=== PATIENT | male | born 1990 | race Caucasian/White ===

== ENCOUNTER 2017-04-19 16:01 | Emergency (ER) | payer MEDICAID ==
--- NOTE | 2017-04-19 16:07 | ED Physician Documentation ---
PD HPI URI - Stated complaint Stated Complaint: CHEST PX WHEN COUGHING - Chief complaint Chief Complaint: Resp - History obtained from History obtained from: Patient - History of Present Illness Timing - onset: How many weeks ago (1) Timing duration: Weeks (he has had cough for 3 weeks, deep and harsh but nonproductive. Started having pain anterior right chest with cough a week ago. Not improving.) Timing details: Gradual onset Associated symptoms: Nasal congestion, Dry cough, Chest pain, Dyspnea (some wheezing at times). No: Fever, NVD, Bilateral edema Contributing factors: No: Sick contact, Travel, Immunocompromised, COPD / asthma (but has smoked a long time) Worsened by: Breathing, Other (cough) Similar symptoms before: Has not had sx before Recently seen: Not recently seen Review of Systems Constitutional: denies: Fever, Chills Nose: denies: Rhinorrhea / runny nose, Congestion Throat: denies: Sore throat Cardiac: reports: Chest pain / pressure. denies: Palpitations, Pedal edema, Calf pain Respiratory: reports: Cough, Wheezing GI: denies: Vomiting, Diarrhea Skin: denies: Rash, Lesions PD PAST MEDICAL HISTORY - Past Medical History Cardiovascular: None Respiratory: None Endocrine/Autoimmune: None GI: Other - Past Surgical History Past Surgical History: No General: Cholecystectomy - Present Medications Home Medications: Ambulatory Orders Medication Instructions Recorded Confirmed Albuterol Sulf [Ventolin Hfa 1 - 2 puffs INH Q4HR PRN #1 inhaler 04/19/17 Inhaler] Azithromycin [Zithromax] 250 mg PO DAILY #6 tablet 04/19/17 Dexamethasone [Decadron] 4 mg PO DAILY #5 tablet 04/19/17 guaiFENesin/CODEINE [Robitussin AC] 10 ml PO Q6H PRN #240 ml 04/19/17 - Allergies Allergies/Adverse Reactions: Allergies Allergy/AdvReac Type Severity Reaction Status Date / Time Penicillins Allergy Mild Itching Verified 04/19/17 16:06 morphine Allergy Rash Verified 04/19/17 16:06 - Social History Does the pt smoke?: Yes Smoking Status: Current every day smoker Does the pt drink ETOH?: Yes - Immunizations Immunizations are current?: Yes PD ED PE NORMAL - Vitals Vital signs reviewed: Yes - General General: Alert and oriented X 3, No acute distress, Well developed/nourished - HEENT HEENT: Ears normal, Pharynx benign - Neck Neck: Supple, no meningeal sign, No adenopathy - Cardiac Cardiac: RRR, No murmur - Respiratory Respiratory: No: Clear bilaterally (diffuse mild wheezing. right anterior chestwall tender at parasternal cartilage. No rash nor sores. ) - Abdomen Abdomen: Soft, Non tender - Derm Derm: Normal color, Warm and dry, No rash Results - Vitals Vitals: Vital Signs - 24 hr 04/19/17 04/19/17 16:04 16:50 Temperature 36.8 C 36.9 C Heart Rate 68 67 Respiratory 18 18 Rate Blood Pressure 136/75 H 122/70 O2 Saturation 100 100 Oxygen O2 Source Room air - Rads (name of study) chest xray Radiology: Prelim report reviewed, EMP read contemporaneously (no infiltrates) PD MEDICAL DECISION MAKING - ED course Complexity details: re-evaluated patient, considered differential, d/w patient Departure - Departure Disposition: 01 Home, Self Care Clinical Impression: Anterior chest wall pain Upper respiratory infection Qualifiers: URI type: unspecified URI Qualified Code(s): J06.9 - Acute upper respiratory infection, unspecified Condition: Stable Record reviewed to determine appropriate education?: Yes Instructions: ED Upper Resp Infec Abx Tx Follow-Up: [facility] [Provider Group] Prescriptions: Albuterol Sulf [Ventolin Hfa Inhaler] 1 - 2 puffs INH Q4HR PRN #1 inhaler PRN Reason: Shortness Of Air/Wheezing Azithromycin [Zithromax] 250 mg PO DAILY #6 tablet Dexamethasone [Decadron] 4 mg PO DAILY #5 tablet guaiFENesin/CODEINE [Robitussin AC] 10 ml PO Q6H PRN #240 ml PRN Reason: Cough Comments: Drink lots of fluids. Use some ibuprofen 2 or 3 times daily for pains. Decadron is a steroid anti-inflammatory daily for 5 more days to reduce bronchial inflammation and should help in the chest as well. Albuterol inhaler 2 puffs 4 times a day for the next 7-10 days to help reduce cough and wheezing and improved breathing. Add cough medicine as needed. This may be just irritated from prior chest cold along with smoking but the duration of it would be concerning for bacterial bronchitis and so we will treated with antibiotics azithromycin for 5 days as well. Recheck if not improving over the next week or so. Discharge Date/Time: 04/19/17 16:55
[2017-04-19] MEDS ORDERED: guaiFENesin/CODEINE 5 ML UDC PO STA (16:19)
[2017-04-19] MEDS ORDERED: DEXAMETHASONE 10 MG/ML VIAL PO STA (16:19)
--- NOTE | 2017-04-19 16:42 | XRAY Preliminary Report ---
Exam: XR CHEST 2 VIEW PA/LAT IMPRESSION: No focal consolidation. [facility] SITE ID: [id number]
[2017-04-19] MEDS ORDERED: guaiFENesin/CODEINE 5 ML UDC ONE (16:43)
[2017-04-19] MEDS ORDERED: DEXAMETHASONE 10 MG/ML VIAL ONE (16:43)
--- NOTE | 2017-04-19 16:44 | XRAY Report ---
EXAM: CHEST RADIOGRAPHY EXAM DATE: 04/19/2017 04:32 PM. CLINICAL HISTORY: Cough for 3 weeks; anterior chest pain. COMPARISON: None. TECHNIQUE: 2 views. FINDINGS: Lungs/Pleura: No focal opacities evident. No pleural effusion. No pneumothorax. Normal volumes. Mediastinum: Heart and mediastinal contours are unremarkable. Other: None. IMPRESSION: No focal consolidation. [facility] Referring Provider Line: [phone] SITE ID: [id number]
[2017-04-19 16:50] VITALS: BP 122/70
== END 2017-04-19 16:55 | disposition home or self-care (01) ==
LOC: ED 16:01
DX: J06.9 Acute upper respiratory infection, unspecified (principal); R07.89 Other chest pain; F17.200 Nicotine dependence, unspecified, uncomplicated
CPT/HCPCS: 71020; 99283; A9270

== ENCOUNTER 2017-06-16 17:19 | Emergency (ER) | payer MEDICAID ==
[2017-06-16 17:25] VITALS: BP 125/80
--- NOTE | 2017-06-16 17:49 | ED Physician Documentation ---
PD HPI HEENT - Stated complaint Stated Complaint: TOOTH PX LT SIDE - Chief complaint Chief Complaint: Heent - History obtained from History obtained from: Patient - History of Present Illness Timing - onset: How many days ago (3) Timing - duration: Days (3) Timing - details: Gradual onset Pain level max: 8 Pain level now: 6 Location: Tooth (L upper molar) Improves: Medication (motrin) Worsens: Temperatures, Other (chewing) Associated symptoms: No: Fever, Congestion, Rhinorrhea, Trismus, Unable to swallow, Swollen nodes, Facial swelling, Headache, Cough Similar symptoms before: Diagnosis (dental caries) - Additional information Additional information: Patient is a 27-year-old male who presents to the emergency department with dental pain for the past 3 days. He states that he had his tooth "drilled and filled". This was done at [place]. States since that time he has had continued pain. Has not followed up with his dentist. He is concerned that it may be getting infected. Is using Motrin at home for pain. No fevers. No facial swelling. Review of Systems Constitutional: denies: Fever, Chills GI: denies: Vomiting Skin: denies: Rash PD PAST MEDICAL HISTORY - Past Medical History Past Medical History: No Cardiovascular: None Respiratory: None Endocrine/Autoimmune: None GI: Other - Past Surgical History Past Surgical History: No General: Cholecystectomy - Present Medications Home Medications: Ambulatory Orders Medication Instructions Recorded Confirmed Clindamycin HCl [Clindamycin 300MG 300 mg PO Q6H #28 capsule 06/16/17 CAP] Meloxicam [Mobic] 15 mg PO DAILY PRN #20 tablet 06/16/17 - Allergies Allergies/Adverse Reactions: Allergies Allergy/AdvReac Type Severity Reaction Status Date / Time Penicillins Allergy Mild Itching Verified 06/16/17 17:25 codeine Allergy Unknown Verified 06/16/17 17:25 morphine Allergy Rash Verified 06/16/17 17:25 - Social History Does the pt smoke?: Yes Smoking Status: Current every day smoker Does the pt drink ETOH?: No Does the pt have substance abuse?: Yes Substance Use and Type: Marijuana - Immunizations Immunizations are current?: No Immunizations: TDAP >10years/unknown - POLST Patient has POLST: No PD ED PE NORMAL - Vitals Vital signs reviewed: Yes - General General: Alert and oriented X 3, No acute distress, Well developed/nourished - HEENT HEENT: PERRL - Neck Neck: Supple, no meningeal sign, No adenopathy - Cardiac Cardiac: RRR, No murmur - Respiratory Respiratory: No respiratory distress, Clear bilaterally - Derm Derm: Warm and dry - Neuro Neuro: Alert and oriented X 3 - Psych Psych: Normal mood, Normal affect PD ED PE EXPANDED - HEENT HEENT Visual: 1 - tenderness (no ginigival swelling, abscess or drainage.) Results - Vitals Vitals: Vital Signs - 24 hr 06/16/17 17:21 Temperature 36.7 C Heart Rate 78 Respiratory 20 Rate Blood Pressure 125/80 O2 Saturation 100 Oxygen O2 Source Room air PD MEDICAL DECISION MAKING - ED course Complexity details: reviewed old records, considered differential, d/w patient ED course: Patient is a 27-year-old male who presents to the emergency department with continued dental pain. Recommend that he follow-up closely with his dentist as he needs to be seen since the pain was following a procedure that they performed. Recommend that he go to their office on Monday. Will place him on antibiotics and Mobic for the time being. No abscess. No facial cellulitis. Patient is penicillin allergic, therefore will utilize clindamycin. Patient counseled regarding signs and symptoms for which I believe and urgent re- evaluation would be necessary. Patient with good understanding of and agreement to plan and is comfortable going home at this time This document was made in part using voice recognition software. While efforts are made to proofread this document, sound alike and grammatical errors may occur. Departure - Departure Disposition: 01 Home, Self Care Clinical Impression: Dental caries Condition: Good Instructions: ED Tooth Pain Follow-Up: your,doctor on monday. [Other] Prescriptions: Clindamycin HCl [Clindamycin 300MG CAP] 300 mg PO Q6H #28 capsule Meloxicam [Mobic] 15 mg PO DAILY PRN #20 tablet PRN Reason: pain Comments: Take all antibiotics until gone. Return if you worsen. Discharge Date/Time: 06/16/17 17:53
== END 2017-06-16 17:53 | disposition home or self-care (01) ==
LOC: ED 17:19
DX: K02.9 Dental caries, unspecified (principal); F17.200 Nicotine dependence, unspecified, uncomplicated
CPT/HCPCS: 99283

== ENCOUNTER 2017-07-12 11:44 | Emergency (ER) | payer OTHER, MEDICAID ==
[2017-07-12] MEDS ORDERED: CYCLOBENZAPRINE 10 MG TABLET PO STA (12:35)
[2017-07-12] MEDS ORDERED: KETOROLAC 60 MG/2 ML VIAL IM STA (12:35)
[2017-07-12] MEDS ORDERED: LIDOCAINE PATCH 5% TOP STA (12:35)
[2017-07-12 13:16] VITALS: BP 128/61
--- NOTE | 2017-07-12 13:22 | ED Physician Documentation ---
History of Present Illness - Stated complaint Stated Complaint: BACK INJ - Chief complaint Chief Complaint: Back Pain - Additonal information Additional information: hx from pt injured back carrying a couch down stairs at work pain is to low thoracic right side region no abd pain no numbness or weakness no incont no fever with this back pain - he did have a fever after denbtal work several weeks ago and again with URI flu sx last week no IV meds drugs Review of Systems Constitutional: denies: Fever (not with the back pain) Cardiac: denies: Chest pain / pressure GI: denies: Abdominal Pain : denies: Incontinent, Hematuria Musculoskeletal: reports: Back pain Neurologic: denies: Focal weakness, Numbness Endocrine: denies: Easy bruising / bleeding Immunocompromised: denies: Immunocompromised PD PAST MEDICAL HISTORY - Past Medical History Past Medical History: No Cardiovascular: None Respiratory: None Endocrine/Autoimmune: None GI: Other - Past Surgical History Past Surgical History: No General: Cholecystectomy - Present Medications Home Medications: Ambulatory Orders Medication Instructions Recorded Confirmed Clindamycin HCl [Clindamycin 300MG 300 mg PO Q6H #28 capsule 06/16/17 07/12/17 CAP] Meloxicam [Mobic] 15 mg PO DAILY PRN #20 tablet 06/16/17 07/12/17 Carisoprodol [Soma] 350 mg PO Q8H PRN #15 tablet 07/12/17 Ibuprofen [Motrin] 800 mg PO Q8H PRN #30 tablet 07/12/17 Lidocaine Patch 5% [Lidoderm Patch] 1 each TOP DAILY PRN #10 patch 07/12/17 - Allergies Allergies/Adverse Reactions: Allergies Allergy/AdvReac Type Severity Reaction Status Date / Time Penicillins Allergy Mild Itching Verified 06/16/17 17:25 codeine Allergy Unknown Verified 06/16/17 17:25 morphine Allergy Rash Verified 06/16/17 17:25 - Social History Does the pt smoke?: Yes Smoking Status: Current every day smoker Does the pt drink ETOH?: No Does the pt have substance abuse?: Yes Substance Use and Type: Marijuana - Immunizations Immunizations are current?: No Immunizations: TDAP >10years/unknown - POLST Patient has POLST: No PD ED PE NORMAL - Vitals Vital signs reviewed: Yes - General General: Alert and oriented X 3 - HEENT HEENT: PERRL - Neck Neck: Supple, no meningeal sign - Cardiac Cardiac: RRR - Respiratory Respiratory: No respiratory distress, Clear bilaterally - Abdomen Abdomen: Soft, Non tender, No organomegaly (no pulsatile mass) - Back Back: No spinal TTP, Other (TTP soft tissue right side low thoracis region, limited ROM 2/2 same) - Derm Derm: Normal color - Neuro Neuro: Other (hip flexion knee ext great toe ext foot dorsi plantar ext 5/5, neg SLR anatoly, no clounus, patellar DTR 1/4 anatoly, denies saddle enesthasia, sens to legs intact) Results - Vitals Vitals: Vital Signs - 24 hr 07/12/17 07/12/17 11:51 13:15 Temperature 36.9 C Heart Rate 81 69 Respiratory 18 16 Rate Blood Pressure 134/73 H 128/61 O2 Saturation 98 98 Oxygen O2 Source Room air PD MEDICAL DECISION MAKING - ED course ED course: lateral mid back pain after lifting injury no red flags Departure - Departure Disposition: 01 Home, Self Care Clinical Impression: Back pain Qualifiers: Back pain location: thoracic back pain Chronicity: acute Back pain laterality: right Qualified Code(s): M54.6 - Pain in thoracic spine Condition: Good Instructions: ED Neck Back Pain General Prescriptions: Carisoprodol [Soma] 350 mg PO Q8H PRN #15 tablet PRN Reason: muscle spasm Ibuprofen [Motrin] 800 mg PO Q8H PRN #30 tablet PRN Reason: Pain Lidocaine Patch 5% [Lidoderm Patch] 1 each TOP DAILY PRN #10 patch PRN Reason: Pain Comments: May take either mobic or motrin but not both - take with food The muscle relaxant may cause drowsiness so no driving The lidocaine patches can be left on up to 12 hr a day Forms: Activity restrictions
== END 2017-07-12 13:29 | disposition home or self-care (01) ==
LOC: ED 11:44
DX: T14.90XA Injury, unspecified, initial encounter (principal); M54.6 Pain in thoracic spine; X50.0XXA Overexertion from strenuous movement or load, initial encounter; Y93.89 Activity, other specified; Y92.009 Unspecified place in unspecified non-institutional (private) residence as the place of occurrence of the external cause; Y92.69 Other specified industrial and construction area as the place of occurrence of the external cause; Y99.0 Civilian activity done for income or pay; F17.200 Nicotine dependence, unspecified, uncomplicated
CPT/HCPCS: 1040M; 96372; 99283; A9270

== ENCOUNTER 2018-04-07 17:14 | Emergency (ER) | payer MEDICAID ==
[2018-04-07 17:42] VITALS: BP 136/55
[2018-04-07] MEDS ORDERED: DEXAMETHASONE 10 MG/ML VIAL PO STA (17:47)
--- NOTE | 2018-04-07 17:51 | ED Physician Documentation ---
PD HPI URI - Stated complaint Stated Complaint: R EAR PX - Chief complaint Chief Complaint: Heent - History obtained from History obtained from: Patient - History of Present Illness Timing - onset: How many weeks ago (1) Timing duration: Weeks (1) Timing details: Gradual onset, Still present Associated symptoms: Ear pain, Nasal congestion, Rhinorrhea, Sinus pain, Sore throat, Productive cough, Dyspnea Improves by: Rest, Medication Worsened by: Activity Similar symptoms before: Diagnosis (otitis and bronchitis) Recently seen: Not recently seen - Additional information Additional information: Previously well 28-year-old male has developed a cough and congestion about 1 week ago and now has significant amount of pain in his right ear and a feeling of fullness. He states that he is scratching at his ear and is now developed some drainage from the ear as well as tenderness to the ear canal. He continues to have cough and some wheezing. He has used an inhaler previously. Review of Systems Constitutional: denies: Fever Eyes: denies: Decreased vision Ears: reports: Ear pain, Drainage/discharge Nose: reports: Rhinorrhea / runny nose, Congestion Throat: reports: Sore throat Cardiac: denies: Chest pain / pressure, Palpitations Respiratory: reports: Dyspnea, Cough, Wheezing GI: denies: Abdominal Pain, Nausea, Vomiting : denies: Dysuria, Frequency PD PAST MEDICAL HISTORY - Past Medical History Cardiovascular: None Respiratory: None Endocrine/Autoimmune: None GI: Other - Past Surgical History Past Surgical History: No General: Cholecystectomy - Present Medications Home Medications: Ambulatory Orders Medication Instructions Recorded Confirmed Clindamycin HCl [Clindamycin 300MG 300 mg PO Q6H #28 capsule 06/16/17 07/12/17 CAP] Meloxicam [Mobic] 15 mg PO DAILY PRN #20 tablet 06/16/17 07/12/17 Carisoprodol [Soma] 350 mg PO Q8H PRN #15 tablet 07/12/17 Ibuprofen [Motrin] 800 mg PO Q8H PRN #30 tablet 07/12/17 Lidocaine Patch 5% [Lidoderm Patch] 1 each TOP DAILY PRN #10 patch 07/12/17 Albuterol Sulf [Ventolin Hfa 1 - 2 puffs INH Q4HR PRN #1 inhaler 04/07/18 Inhaler] Azithromycin [Zithromax] 250 mg PO DAILY #6 tablet 04/07/18 Neomycin/Polymyx/Hc Otic Drops 4 drops RIGHTEAR TID #1 bottle 04/07/18 [Cortisporin Ear Susp] - Allergies Allergies/Adverse Reactions: Allergies Allergy/AdvReac Type Severity Reaction Status Date / Time Penicillins Allergy Mild Itching Verified 06/16/17 17:25 codeine Allergy Unknown Verified 06/16/17 17:25 morphine Allergy Rash Verified 06/16/17 17:25 - Social History Does the pt smoke?: Yes Smoking Status: Current every day smoker Does the pt drink ETOH?: No Does the pt have substance abuse?: Yes - Immunizations Immunizations are current?: No Immunizations: TDAP >10years/unknown - POLST Patient has POLST: No PD ED PE NORMAL - Vitals Vital signs reviewed: Yes - General General: Alert and oriented X 3, No acute distress, Well developed/nourished - HEENT HEENT: Atraumatic, PERRL, EOMI, Other (Both TM is are inflammed with indistinct landmarks. The right ear has lichenification of the skin of the ear canal tenderness to palpation of the pinna and pull on the tragus. 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, No motor deficit, No sensory deficit, Normal speech Eye Opening: Spontaneous Motor: Obeys Commands Verbal: Oriented GCS Score: 15 - Psych Psych: Normal mood, Normal affect Results - Vitals Vitals: Vital Signs - 24 hr 04/07/18 17:39 Temperature 36.5 C Heart Rate 72 Respiratory 14 Rate Blood Pressure 136/55 H O2 Saturation 99 Oxygen O2 Source Room air PD MEDICAL DECISION MAKING - ED course Complexity details: reviewed old records, considered differential, d/w patient ED course: 28-year-old male with bilateral otitis is administered dexamethasone 10 mg orally here in the emergency department we will place him on some azithromycin and a inhaler. - Sepsis Event Vital Signs: Vital Signs - 24 hr 04/07/18 17:39 Temperature 36.5 C Heart Rate 72 Respiratory 14 Rate Blood Pressure 136/55 H O2 Saturation 99 Oxygen O2 Source Room air Departure - Departure Disposition: 01 Home, Self Care Clinical Impression: Otitis media Qualifiers: Otitis media type: suppurative Chronicity: acute Laterality: bilateral Recurrence: not specified as recurrent Spontaneous tympanic membrane rupture: without spontaneous rupture Qualified Code(s): H66.003 - Acute suppurative otitis media without spontaneous rupture of ear drum, bilateral Otitis externa Qualifiers: Otitis externa type: other infective Chronicity: acute Laterality: right Qualified Code(s): H60.391 - Other infective otitis externa, right ear Condition: Stable Instructions: ED Otitis Media Acute Adult, ED Otitis Externa Follow-Up: [facility] [Provider Group] Prescriptions: Albuterol Sulf [Ventolin Hfa Inhaler] 1 - 2 puffs INH Q4HR PRN #1 inhaler PRN Reason: Shortness Of Air/Wheezing Azithromycin [Zithromax] 250 mg PO DAILY #6 tablet Neomycin/Polymyx/Hc Otic Drops [Cortisporin Ear Susp] 4 drops RIGHTEAR TID #1 bottle
== END 2018-04-07 18:26 | disposition home or self-care (01) ==
LOC: ED 17:14
DX: H66.003 Acute suppurative otitis media without spontaneous rupture of ear drum, bilateral (principal); H60.391 Other infective otitis externa, right ear; F17.200 Nicotine dependence, unspecified, uncomplicated
CPT/HCPCS: 99283

== ENCOUNTER 2018-04-24 10:12 | Emergency (ER) | payer MEDICAID ==
--- NOTE | 2018-04-24 11:49 | ED Physician Documentation ---
PD HPI HEENT - Stated complaint Stated Complaint: TOOTH PX - Chief complaint Chief Complaint: Heent - History obtained from History obtained from: Patient - History of Present Illness Timing - onset: How many days ago (few) Timing - duration: Days (few) Timing - details: Gradual onset, Still present Location: Tooth (right upper) Improves: No: Medication (ibuprofen not helping) Associated symptoms: Facial swelling (some of right cheek). No: Fever, Congestion Similar symptoms before: Diagnosis (dental infections - was on abx 2 months ago and then had that tooth extracted. Called [facility] for current problem and has appt next month.) Recently seen: Not recently seen Review of Systems Constitutional: denies: Fever, Chills Nose: denies: Rhinorrhea / runny nose, Congestion Throat: reports: Dental pain / toothache. denies: Sore throat Cardiac: denies: Chest pain / pressure Respiratory: denies: Dyspnea PD PAST MEDICAL HISTORY - Past Medical History Past Medical History: No Cardiovascular: None Respiratory: None Endocrine/Autoimmune: None GI: Other - Past Surgical History Past Surgical History: No General: Cholecystectomy - Present Medications Home Medications: Ambulatory Orders Medication Instructions Recorded Confirmed Chlorhexidine Gluconate [Peridex] 5 ml MM BID #118 ml 04/24/18 Doxycycline Hyclate 100 mg PO BID #14 tablet 04/24/18 HYDROcod/ACETAM 5/325 [[place] 5/325] 1 tab PO Q6H PRN #15 tablet 04/24/18 Naproxen 375 mg PO BID #20 tablet 04/24/18 - Allergies Allergies/Adverse Reactions: Allergies Allergy/AdvReac Type Severity Reaction Status Date / Time Penicillins Allergy Mild Itching Verified 04/24/18 10:29 codeine Allergy Unknown Verified 04/24/18 10:29 morphine Allergy Rash Verified 04/24/18 10:29 - Social History Does the pt smoke?: Yes Smoking Status: Current every day smoker Does the pt drink ETOH?: No Does the pt have substance abuse?: Yes Substance Use and Type: Marijuana - Immunizations Immunizations are current?: No Immunizations: TDAP >10years/unknown - POLST Patient has POLST: No PD ED PE NORMAL - Vitals Vital signs reviewed: Yes - General General: Alert and oriented X 3, Well developed/nourished - HEENT HEENT: No: Dentition benign (severe caries generally. Right upper premolar with decay and gum swelling. No fluctuance. There is some facial swelling right cheek. ) - Neck Neck: Supple, no meningeal sign, No adenopathy - Cardiac Cardiac: RRR, No murmur - Respiratory Respiratory: Clear bilaterally - Neuro Neuro: Alert and oriented X 3, No motor deficit, Normal speech Results - Vitals Vitals: Vital Signs - 24 hr 04/24/18 04/24/18 10:25 12:21 Temperature 36.5 C 36.8 C Heart Rate 63 52 L Respiratory 16 12 Rate Blood Pressure 132/80 H 141/84 H O2 Saturation 97 99 Oxygen O2 Source Room air PD MEDICAL DECISION MAKING - ED course Complexity details: considered differential, d/w patient Departure - Departure Disposition: 01 Home, Self Care Clinical Impression: Pain due to dental caries, Dental infection Condition: Stable Record reviewed to determine appropriate education?: Yes Instructions: ED Abscess Dental Prescriptions: Chlorhexidine Gluconate [Peridex] 5 ml MM BID #118 ml Doxycycline Hyclate 100 mg PO BID #14 tablet HYDROcod/ACETAM 5/325 [[place] 5/325] 1 tab PO Q6H PRN #15 tablet PRN Reason: Pain Naproxen 375 mg PO BID #20 tablet Comments: Rinse with antiseptic mouthwash a couple times a day. Naproxen anti- inflammatory twice daily for swelling and pain. Doxycycline antibiotic twice daily for a week. Add pain medicine if needed. Follow-up with dentist as planned. Discharge Date/Time: 04/24/18 12:24
[2018-04-24] MEDS ORDERED: DOXYCYCLINE 100 MG TABLET PO STA (12:10)
[2018-04-24] MEDS ORDERED: NAPROXEN 250 MG TABLET PO STA (12:10)
[2018-04-24] MEDS ORDERED: HYDROcod/ACETAM 5/325 MG TABLET PO STA (12:10)
[2018-04-24 12:21] VITALS: BP 141/84
== END 2018-04-24 12:24 | disposition home or self-care (01) ==
LOC: ED 10:12
DX: K02.9 Dental caries, unspecified (principal); K04.7 Periapical abscess without sinus; F17.200 Nicotine dependence, unspecified, uncomplicated
CPT/HCPCS: 99283; A9270

== ENCOUNTER 2019-04-09 20:16 | Emergency (ER) | payer MEDICAID ==
[2019-04-09 20:23] VITALS: BP 136/69
[2019-04-09] MEDS ORDERED: AZITHROMYCIN 250 MG TABLET PO STA (20:27)
--- NOTE | 2019-04-09 20:32 | ED Physician Documentation ---
PD HPI URI - Stated complaint Stated Complaint: RT EAR PAIN AND SWELLING - Chief complaint Chief Complaint: Heent - History obtained from History obtained from: Patient - History of Present Illness Timing - onset: Other (He had a few days of right greater than left ear pain with some drainage from the right and muffled tried some homeopathic eardrops without relief.) Review of Systems Constitutional: denies: Fever, Chills Nose: denies: Rhinorrhea / runny nose Throat: denies: Sore throat Cardiac: denies: Chest pain / pressure Respiratory: denies: Dyspnea, Cough PD PAST MEDICAL HISTORY - Past Medical History Cardiovascular: None Respiratory: None Endocrine/Autoimmune: None GI: Other - Past Surgical History Past Surgical History: No General: Cholecystectomy - Present Medications Home Medications: Ambulatory Orders Medication Instructions Recorded Confirmed Chlorhexidine Gluconate [Peridex] 5 ml MM BID #118 ml 04/24/18 Doxycycline Hyclate 100 mg PO BID #14 tablet 04/24/18 HYDROcod/ACETAM 5/325 [[place] 5/325] 1 tab PO Q6H PRN #15 tablet 04/24/18 Naproxen 375 mg PO BID #20 tablet 04/24/18 Azithromycin 1 tab PO DAILY #4 tablet 04/09/19 Neomycin/Polymyx/Hc Otic Drops 4 drops OT TID #1 bottle 04/09/19 [Cortisporin Ear Susp] - Allergies Allergies/Adverse Reactions: Allergies Allergy/AdvReac Type Severity Reaction Status Date / Time Penicillins Allergy Mild Itching Verified 04/09/19 20:22 codeine Allergy Unknown Verified 04/09/19 20:22 morphine Allergy Rash Verified 04/09/19 20:22 - Social History Does the pt smoke?: Yes Smoking Status: Current every day smoker Does the pt drink ETOH?: No Does the pt have substance abuse?: Yes - Immunizations Immunizations are current?: No Immunizations: TDAP >10years/unknown - POLST Patient has POLST: No PD ED PE NORMAL - Vitals Vital signs reviewed: Yes - General General: Alert and oriented X 3, No acute distress - HEENT HEENT: Other (He has non-occlusive right external otitis, the TM on the right is normal. He has bulging left otitis media) - Neck Neck: Supple, no meningeal sign, No bony TTP - Derm Derm: No rash - Neuro Neuro: Alert and oriented X 3, Normal speech Results - Vitals Vitals: Vital Signs - 24 hr 04/09/19 20:20 Temperature 36.3 C L Heart Rate 85 Respiratory 16 Rate Blood Pressure 136/69 H O2 Saturation 100 Oxygen O2 Source Room air Departure - Departure Disposition: 01 Home, Self Care Clinical Impression: LOM (left otitis media) Qualifiers: Otitis media type: suppurative Chronicity: acute Recurrence: recurrent Spontaneous tympanic membrane rupture: without spontaneous rupture Qualified Code(s): H66.005 - Acute suppurative otitis media without spontaneous rupture of ear drum, recurrent, left ear Otitis externa Qualifiers: Otitis externa type: other infective Chronicity: acute Laterality: right Qualified Code(s): H60.391 - Other infective otitis externa, right ear Condition: Good Record reviewed to determine appropriate education?: Yes Instructions: ED Otitis Media Acute Adult, ED Otitis Externa Prescriptions: Azithromycin 1 tab PO DAILY #4 tablet Neomycin/Polymyx/Hc Otic Drops [Cortisporin Ear Susp] 4 drops OT TID #1 bottle Comments: Recheck with your doctor in 1 week, return for new or worsening symptoms. Your blood pressure was elevated today on check into the emergency department. This does not mean that you have hypertension, it is a common phenomenon to come to the emergency department and have elevated blood pressure. I recommend that you see your primary care physician within the week to have it rechecked when you are feeling better. Forms: Activity restrictions
== END 2019-04-09 20:36 | disposition home or self-care (01) ==
LOC: ED 20:16
DX: H66.005 Acute suppurative otitis media without spontaneous rupture of ear drum, recurrent, left ear (principal); H60.391 Other infective otitis externa, right ear; R03.0 Elevated blood-pressure reading, without diagnosis of hypertension; F17.200 Nicotine dependence, unspecified, uncomplicated
CPT/HCPCS: 99282; 99283; A9270

== ENCOUNTER 2019-05-29 03:02 | Emergency (ER) | payer OTHER, MEDICAID ==
[2019-05-29 03:11] VITALS: BP 141/77
[2019-05-29] MEDS ORDERED: IBUPROFEN 600 MG TABLET PO STA (03:20)
[2019-05-29] MEDS ORDERED: ACETAMINOPHEN 325 MG TABLET PO STA (03:20)
--- NOTE | 2019-05-29 03:21 | ED Physician Documentation ---
History of Present Illness - Stated complaint Stated Complaint: BK/SHOULDER PX - Chief complaint Chief Complaint: Back Pain - Additonal information Additional information: This is a 29-year-old male who presents with some right upper back pain after straining to push the palate of frozen turkeys. Patient was trying to push a heavy pallet, and is having difficulty pushing it so he strained and pushes her to could and he felt a popping sensation in the upper right back. Initially did not have much pain but over the subsequent hours he has had increasing pain in the area. He is able to move his arm and neck without issue, but certain movements such as pushing forward or raising his arm above his head to cause some discomfort in that region. No anterior chest pain, no difficulty breathing, he otherwise feels well. He was asked by his employer to come get checked out. Review of Systems Cardiac: denies: Chest pain / pressure Respiratory: denies: Dyspnea PD PAST MEDICAL HISTORY - Past Medical History Cardiovascular: None Respiratory: None Neuro: None Endocrine/Autoimmune: None GI: Other : None HEENT: None Psych: None Musculoskeletal: None Derm: None - Past Surgical History Past Surgical History: No General: Cholecystectomy - Present Medications Home Medications: Ambulatory Orders Medication Instructions Recorded Confirmed Chlorhexidine Gluconate [Peridex] 5 ml MM BID #118 ml 04/24/18 Doxycycline Hyclate 100 mg PO BID #14 tablet 04/24/18 HYDROcod/ACETAM 5/325 [[place] 5/325] 1 tab PO Q6H PRN #15 tablet 04/24/18 Naproxen 375 mg PO BID #20 tablet 04/24/18 Azithromycin 1 tab PO DAILY #4 tablet 04/09/19 Neomycin/Polymyx/Hc Otic Drops 4 drops OT TID #1 bottle 04/09/19 [Cortisporin Ear Susp] - Allergies Allergies/Adverse Reactions: Allergies Allergy/AdvReac Type Severity Reaction Status Date / Time Penicillins Allergy Mild Itching Verified 04/09/19 20:22 codeine Allergy Unknown Verified 04/09/19 20:22 morphine Allergy Rash Verified 04/09/19 20:22 - Social History Does the pt smoke?: Yes Smoking Status: Current every day smoker Does the pt drink ETOH?: No Does the pt have substance abuse?: Yes - Immunizations Immunizations are current?: No Immunizations: TDAP >10years/unknown - POLST Patient has POLST: No PD ED PE NORMAL - Vitals Vital signs reviewed: Yes - General General: Alert and oriented X 3, No acute distress - HEENT HEENT: Atraumatic - Cardiac Cardiac: Other (Well-perfused skin) - Respiratory Respiratory: No respiratory distress, Clear bilaterally - Back Back: Other (Back is atraumatic in appearance. No midline tenderness to palpation, no scapular Bony tenderness tenderness. He does have tenderness over the Distribution of the right trapezius muscle, just medial to the medial border of the scapula. He has full active range of motion of the right shoulder but specific movements such as extension and shoulder to cause some discomfort.) - Extremities Extremities: No deformity - Neuro Neuro: Alert and oriented X 3 - Psych Psych: Normal mood, Normal affect Results - Vitals Vitals: Vital Signs - 24 hr 05/29/19 03:06 Temperature 36.2 C L Heart Rate 84 Respiratory 18 Rate Blood Pressure 141/77 H O2 Saturation 100 Oxygen O2 Source Room air PD MEDICAL DECISION MAKING - ED course ED course: Patient presents with isolated trapezius tenderness and soreness after straining event yesterday. His lungs are clear to auscultation and his oxygen saturation is normal, no signs of pneumothorax, and the mechanism and his exam makes rib fracture or other bony abnormality highly unlikely. He is sore in the muscle body itself, and this does appear to be a trapezius strain. He has no anterior chest pain, no history to suggest cardiac cause. He was given Tylenol and ibuprofen, I discussed supportive care, and provided a note for work for light duty. Return precautions were discussed and he was discharged home Departure - Departure Disposition: 01 Home, Self Care Clinical Impression: Trapezius strain Qualifiers: Encounter type: initial encounter Laterality: right Qualified Code(s): S46.811A - Strain of other muscles, fascia and tendons at shoulder and upper arm level, right arm, initial encounter Condition: Good Follow-Up: Your,PCP [Other] (With any continued symptoms) Comments: You appear to have strained your trapezius muscle. Please apply ice to the area that is sore for 20 minutes 4 times a day for at least the next 48 hours. Also you may take Tylenol 650 mg every 6 hours and ibuprofen 650 mg every 6 hours as needed for pain. Avoid further strain or injury to the muscle, you should be on light duty until this improves. If you are developing new or worsening symptoms such as difficulty breathing, return to the emergency department Forms: Activity restrictions
== END 2019-05-29 03:45 | disposition home or self-care (01) ==
LOC: ED 03:02
DX: S46.811A Strain of other muscles, fascia and tendons at shoulder and upper arm level, right arm, initial encounter (principal); S29.012A Strain of muscle and tendon of back wall of thorax, initial encounter; X50.0XXA Overexertion from strenuous movement or load, initial encounter; Y93.89 Activity, other specified; Y99.0 Civilian activity done for income or pay; F17.200 Nicotine dependence, unspecified, uncomplicated
CPT/HCPCS: 99282; 99284; A9270

== ENCOUNTER 2019-06-08 09:20 | Emergency (ER) | payer MEDICAID ==
--- NOTE | 2019-06-08 10:02 | ED Physician Documentation ---
PD HPI MALE - Stated complaint Stated Complaint: MEDICAL RELEASE - Chief complaint Chief Complaint: General - History obtained from History obtained from: Patient - History of Present Illness Timing - onset: How many weeks ago (2) Timing - duration: Weeks (2) Timing - details: Now resolved (had scapular strain and seen in ER, with light duty note. He says has improved and is using arm normally. Needs note to return to regular duty. Also complained of right testicle pain this morning for about an hour that is now resolving. Has had this occur intermittently several times in past month for an hour each time. Says the scrotum will swell some and marked pain, then it resolves. Not related to activity nor injury. Does not have pain nor swelling between episodes.) Associated symptoms: No: Dysuria, Urinary frequency, Discharge, Genital sore / lesion PD HPI MALE CONTRIB FACTORS: Sexually active (with only) Similar symptoms before: Has not had sx before Recently seen: Emergency Dept (2 weeks ago for shoulder injury.) Review of Systems : denies: Dysuria, Frequency, Discharge Skin: denies: Rash, Lesions PD PAST MEDICAL HISTORY - Past Medical History Past Medical History: Yes Cardiovascular: None Respiratory: None Neuro: None Endocrine/Autoimmune: None GI: Other : None HEENT: None Psych: None Musculoskeletal: None Derm: None - Past Surgical History Past Surgical History: No General: Cholecystectomy - Present Medications Home Medications: Ambulatory Orders Medication Instructions Recorded Confirmed Chlorhexidine Gluconate [Peridex] 5 ml MM BID #118 ml 04/24/18 Doxycycline Hyclate 100 mg PO BID #14 tablet 04/24/18 HYDROcod/ACETAM 5/325 [[place] 5/325] 1 tab PO Q6H PRN #15 tablet 04/24/18 Naproxen 375 mg PO BID #20 tablet 04/24/18 Azithromycin 1 tab PO DAILY #4 tablet 04/09/19 Neomycin/Polymyx/Hc Otic Drops 4 drops OT TID #1 bottle 04/09/19 [Cortisporin Ear Susp] Naproxen 375 mg PO BID #20 tablet 06/08/19 - Allergies Allergies/Adverse Reactions: Allergies Allergy/AdvReac Type Severity Reaction Status Date / Time Penicillins Allergy Mild Itching Verified 06/08/19 09:33 codeine Allergy Unknown Verified 06/08/19 09:33 morphine Allergy Rash Verified 06/08/19 09:33 - Social History Does the pt smoke?: Yes Smoking Status: Current every day smoker Does the pt drink ETOH?: No Does the pt have substance abuse?: Yes - Immunizations Immunizations are current?: No Immunizations: TDAP >10years/unknown - POLST Patient has POLST: No PD ED PE NORMAL - Vitals Vital signs reviewed: Yes - General General: Alert and oriented X 3, No acute distress, Well developed/nourished - Male Male : Other (testicles and scrotum normal feeling with normal lie. No swelling. No inguinal nor scrotal hernias felt. ) - Derm Derm: Normal color, Warm and dry - Extremities Extremities: Other (right scapular area not tender. Good ROM of the shoulder, and no pain with testing against resistance. ) - Neuro Neuro: Alert and oriented X 3, No motor deficit, No sensory deficit, Normal speech Results - Vitals Vitals: Vital Signs - 24 hr 06/08/19 06/08/19 09:29 12:17 Temperature 36.0 C L 36.6 C Heart Rate 88 87 Respiratory 14 16 Rate Blood Pressure 130/76 131/79 H O2 Saturation 99 99 Oxygen O2 Source Room air - Rads (name of study) testicle U/S Radiology: Prelim report reviewed (normal structure, normal vascular.), See rad report PD MEDICAL DECISION MAKING - ED course Complexity details: reviewed results (testicle U/S normal), considered differential (his shoulder is doing fine and can return to regular use. He says he has had intermittent pain in righ testicle for an hour at a time the past few weeks, with an episode this morning, that is improving now. Will get U/S of that to eval. ), d/w patient Departure - Departure Disposition: 01 Home, Self Care Clinical Impression: Right testicular pain Right shoulder strain Qualifiers: Encounter type: initial encounter Qualified Code(s): S46.911A - Strain of unspecified muscle, fascia and tendon at shoulder and upper arm level, right arm, initial encounter Condition: Stable Record reviewed to determine appropriate education?: Yes Instructions: ED Testicular Pain [facility] Follow-Up: Kj Fuentes MD [Provider Admit Priv/Credential] - Prescriptions: Naproxen 375 mg PO BID #20 tablet Comments: Your okay to return to work regarding her shoulder. The pain you had in your testicle I would be concerning for a temporary twisting of the testicle and impairing the blood flow. The ultrasound showed normal at this time but given that has happened a few times already, I would suggest following up with a urologist to see if they feel it is intermittent torsion as well and if so we just tacked the testicle down with a stitch. I know that sounds terrible but is really not bad of a process and is done under local anesthetic in the office. Meanwhile use naproxen twice daily if it is just an inflammatory process. Forms: Activity restrictions Discharge Date/Time: 06/08/19 12:17
--- NOTE | 2019-06-08 11:38 | Ultrasound Report ---
Reason: intermittent pain left testicle for weeks Procedure Date: 06/08/2019 Accession Number: [id number] / [id number] Procedure: US - Testicle w/Doppler Limited CPT Code: Final Report FULL RESULT: EXAM: SCROTAL ULTRASOUND EXAM DATE: 06/08/2019 11:13 AM. CLINICAL HISTORY: Intermittent pain left testicle for weeks. COMPARISON: None. TECHNIQUE: Real-time scanning was performed with static images obtained. Color-flow images were utilized. FINDINGS: Right: Testis: 4 x 1.8 x 2.4 cm. Normal size and echotexture. No mass, calcification, or abnormal blood flow. Epididymis: 3.9 x 0.8 x 0.3 cm. Normal size and echotexture. No mass or abnormal blood flow. Hydrocele: None. Varicocele: None. Left: Testis: 4 x 1.9 x 2.5 cm. Normal size and echotexture. No mass, calcification, or abnormal blood flow. Epididymis: 4.6 x 0.9 x 0.2 cm. Normal size and echotexture. No mass or abnormal blood flow. Hydrocele: None. Varicocele: None. IMPRESSION: Normal scrotal ultrasound. RADIA
[2019-06-08 12:17] VITALS: BP 131/79
== END 2019-06-08 12:17 | disposition home or self-care (01) ==
LOC: ED 09:20
DX: N50.811 Right testicular pain (principal); S46.911A Strain of unspecified muscle, fascia and tendon at shoulder and upper arm level, right arm, initial encounter; X58.XXXA Exposure to other specified factors, initial encounter; F17.200 Nicotine dependence, unspecified, uncomplicated
CPT/HCPCS: 76870; 87491; 87591; 87661; 93976; 99283; 99284

== ENCOUNTER 2019-06-19 18:07 | Emergency (ER) | payer MEDICAID ==
[2019-06-19 18:15] VITALS: BP 135/87
[2019-06-19] MEDS ORDERED: CLINDAMYCIN 150 MG CAPSULE PO STA (18:30)
[2019-06-19] MEDS ORDERED: IBUPROFEN 800 MG TABLET PO STA (18:31)
--- NOTE | 2019-06-19 18:33 | ED Physician Documentation ---
History of Present Illness - Stated complaint Stated Complaint: DENTAL/TOOTH SWELLING - Chief complaint Chief Complaint: Heent - History obtained from History obtained from: Patient - History of Present Illness Timing: How many weeks ago (2) Pain level max: 7 Pain level now: 7 - Additonal information Additional information: Dental pain for a few weeks, noticed swelling to the upper gum earlier today. Concern for possible abscess. No fevers. No vomiting. Review of Systems Constitutional: denies: Fever, Chills GI: denies: Vomiting, Diarrhea Skin: denies: Rash Musculoskeletal: denies: Neck pain, Back pain Neurologic: denies: Headache PD PAST MEDICAL HISTORY - Past Medical History Cardiovascular: None Respiratory: None Neuro: None Endocrine/Autoimmune: None GI: Other : None HEENT: None Psych: None Musculoskeletal: None Derm: None - Past Surgical History Past Surgical History: No General: Cholecystectomy - Present Medications Home Medications: Ambulatory Orders Medication Instructions Recorded Confirmed Chlorhexidine Gluconate [Peridex] 5 ml MM BID #118 ml 04/24/18 Doxycycline Hyclate 100 mg PO BID #14 tablet 04/24/18 HYDROcod/ACETAM 5/325 [[place] 5/325] 1 tab PO Q6H PRN #15 tablet 04/24/18 Naproxen 375 mg PO BID #20 tablet 04/24/18 Azithromycin 1 tab PO DAILY #4 tablet 04/09/19 Neomycin/Polymyx/Hc Otic Drops 4 drops OT TID #1 bottle 04/09/19 [Cortisporin Ear Susp] Naproxen 375 mg PO BID #20 tablet 06/08/19 Clindamycin HCl [Clindamycin 300MG 300 mg PO Q6H #40 capsule 06/19/19 CAP] Ibuprofen [Motrin] 800 mg PO Q8H PRN #30 tablet 06/19/19 - Allergies Allergies/Adverse Reactions: Allergies Allergy/AdvReac Type Severity Reaction Status Date / Time Penicillins Allergy Mild Itching Verified 06/19/19 18:11 codeine Allergy Unknown Verified 06/19/19 18:11 morphine Allergy Rash Verified 06/19/19 18:11 - Social History Does the pt smoke?: Yes Smoking Status: Current every day smoker Does the pt drink ETOH?: No Does the pt have substance abuse?: Yes - Immunizations Immunizations are current?: No Immunizations: TDAP >10years/unknown - POLST Patient has POLST: No PD ED PE NORMAL - Vitals Vital signs reviewed: Yes - General General: Alert and oriented X 3, No acute distress - HEENT HEENT: Moist mucous membranes - Derm Derm: Warm and dry - Neuro Neuro: Alert and oriented X 3 PD ED PE EXPANDED - HEENT HEENT Visual: 1 - abscess Results - Vitals Vitals: Vital Signs - 24 hr 06/19/19 18:11 Temperature 36.5 C Heart Rate 94 Respiratory 14 Rate Blood Pressure 135/87 H O2 Saturation 100 Oxygen O2 Source Room air Procedures - Abscess I&D (location) upper gumline Preparation: Other (topical lidocaine) Incision: Incised with scalpel, Purulent drainage Other: Pt tolerated well PD MEDICAL DECISION MAKING - ED course Complexity details: considered differential, d/w patient ED course: Patient with a dental abscess. This was incised and drained. Tolerated well. Will place on antibiotics for home. Patient counseled regarding signs and symptoms for which I believe and urgent re-evaluation would be necessary. Patient with good understanding of and agreement to plan and is comfortable going home at this time This document was made in part using voice recognition software. While efforts are made to proofread this document, sound alike and grammatical errors may occur. No facial swelling or cellulitis. Departure - Departure Disposition: 01 Home, Self Care Clinical Impression: Dental caries Condition: Good Instructions: ED Tooth Pain Follow-Up: your,doctor in 1 week [Other] Prescriptions: Clindamycin HCl [Clindamycin 300MG CAP] 300 mg PO Q6H #40 capsule Ibuprofen [Motrin] 800 mg PO Q8H PRN #30 tablet PRN Reason: PAIN &/OR FEVER Comments: Take all antibiotics until gone. Return if you worsen. Follow-up with a dentist as soon as possible. Discharge Date/Time: 06/19/19 19:05
== END 2019-06-19 19:05 | disposition home or self-care (01) ==
LOC: ED 18:07
DX: K05.319 Chronic periodontitis, localized, unspecified severity (principal); K02.9 Dental caries, unspecified; F17.200 Nicotine dependence, unspecified, uncomplicated
CPT/HCPCS: 41800; 99282; 99283; A9270

== ENCOUNTER 2020-01-15 21:20 | Outpatient (CLI) | payer MEDICAID, OTHER ==
[2020-01-16 23:50] LABS: BASOPHILS # (AUTO) 0.1 10^3/uL (0.0-0.1); BASOPHILS % (AUTO) 0.9 %; EOSINOPHILS # (AUTO) 0.1 10^3/uL (0.0-0.7); EOSINOPHILS % (AUTO) 1.4 %; HGB - HEMOGLOBIN 14.8 g/dL (14.0-18.0); LYMPHOCYTES % (AUTO) 38.4 %; MEAN CORPUSCULAR HEMOGLOBIN 30.8 pg (27.0-31.0); MEAN CORPUSCULAR HGB CONC 33.1 g/dL (32.0-36.0); MEAN CORPUSCULAR VOLUME 92.9 fL (80.0-94.0); MEAN PLATELET VOLUME 11.1 fL (7.4-11.4); MONOCYTES % (AUTO) 12.3 %; NEUTROPHILS # (AUTO) 3.7 10^3/uL (1.5-6.6); NEUTROPHILS % (AUTO) 46.6 %; PLT - PLATELET COUNT 164 10^3/uL (130-450); RED BLOOD COUNT 4.81 10^6/uL (4.70-6.10); RED CELL DISTRIBUTION WIDTH 13.2 % (12.0-15.0); WHITE BLOOD COUNT 7.9 x10^3/uL (4.8-10.8)
[2020-01-17 00:01] LABS: ALBUMIN 4.9 g/dL (3.2-5.5); BILIRUBIN,TOTAL 0.5 mg/dL (0.2-1.0); CALCIUM 9.7 mg/dL (8.5-10.3); TOTAL PROTEIN 7.4 g/dL (6.7-8.2)
== END 2020-01-15 23:59 | disposition home or self-care (01) ==
LOC: LAB.R 21:20
PROVIDERS: ATTEND Registered Nurse
DX: Z79.899 Other long term (current) drug therapy (principal)
CPT/HCPCS: 80053; 85025

== ENCOUNTER 2021-05-31 16:37 | Emergency (ER) | payer MEDICAID, OTHER ==
[2021-05-31 16:53] VITALS: BP 140/84
--- NOTE | 2021-05-31 18:12 | ED Physician Documentation ---
PD HPI URI - Stated complaint Stated Complaint: COUGH - Chief complaint Chief Complaint: General - History obtained from History obtained from: Patient - History of Present Illness Timing - onset: How many days ago (3-4) Timing duration: Days (3-4) Timing details: Gradual onset, Still present Associated symptoms: Chills, Nasal congestion, Rhinorrhea, Dry cough. No: Dyspnea, NVD Contributing factors: Sick contact, Unimmunized. No: COPD / asthma Similar symptoms before: Has not had sx before Review of Systems Constitutional: reports: Chills, Myalgias. denies: Fever Nose: reports: Congestion. denies: Rhinorrhea / runny nose Throat: denies: Sore throat Respiratory: reports: Cough GI: denies: Nausea, Vomiting Skin: denies: Rash PD PAST MEDICAL HISTORY - Past Medical History Cardiovascular: None Respiratory: None Neuro: None Endocrine/Autoimmune: None GI: Other : None HEENT: None Psych: None Musculoskeletal: None Derm: None - Past Surgical History Past Surgical History: No General: Cholecystectomy - Present Medications Home Medications: Ambulatory Orders Medication Instructions Recorded Confirmed No Known Home Medications 05/31/21 05/31/21 - Allergies Allergies/Adverse Reactions: Allergies Allergy/AdvReac Type Severity Reaction Status Date / Time Penicillins Allergy Mild Itching Verified 05/31/21 16:49 codeine Allergy Unknown Verified 05/31/21 16:49 morphine Allergy Rash Verified 05/31/21 16:49 - Social History Does the pt smoke?: Yes Smoking Status: Current every day smoker Does the pt drink ETOH?: No Does the pt have substance abuse?: Yes - Immunizations Immunizations are current?: No Immunizations: TDAP >10years/unknown - POLST Patient has POLST: No PD ED PE NORMAL - Vitals Vital signs reviewed: Yes - General General: Alert and oriented X 3, No acute distress, Well developed/nourished - HEENT HEENT: Ears normal, Moist mucous membranes, Pharynx benign - Neck Neck: Supple, no meningeal sign, No adenopathy - Cardiac Cardiac: RRR, No murmur - Respiratory Respiratory: Clear bilaterally - Derm Derm: Normal color, Warm and dry, No rash Results - Vitals Vitals: Oxygen O2 Source Room air PD MEDICAL DECISION MAKING - ED course Complexity details: considered differential (URI symptoms. will test for COVID. ), d/w patient Departure - Departure Disposition: 01 Home, Self Care Clinical Impression: Upper respiratory infection Qualifiers: URI type: unspecified URI Qualified Code(s): J06.9 - Acute upper respiratory infection, unspecified Condition: Stable Record reviewed to determine appropriate education?: Yes Instructions: ED Upper Resp Infec No Abx Tx Comments: You have a Covid test pending. You need to self quarantine until the result is done and negative. Do not leave your house. Do not get near anybody. The results should be done in 48 to 72 hours, but sometimes longer. We will call with a positive result, the fastest way to get a negative result for confirmation though is to go to the hospital website at [email or web address], click on the my [employer] tab and sign up for the patient portal. If any friends or family get sick and would like to have a Covid test done, but do not have signs or symptoms that would necessitate being hospitalized, we encourage testing throughone of the local pharmacies or the Health Department. Call them to schedule an appointment. Stay well-hydrated. Tylenol or ibuprofen if needed for fevers or pains. [id number] cough medicine or such as needed. Your Covid test should result the next couple of days. Good luck with the drug treatment program. Discharge Date/Time: 05/31/21 18:23
== END 2021-05-31 18:23 | disposition home or self-care (01) ==
LOC: ED 16:37
DX: J06.9 Acute upper respiratory infection, unspecified (principal); Z20.822 Contact with and (suspected) exposure to COVID-19; F17.200 Nicotine dependence, unspecified, uncomplicated
CPT/HCPCS: 99282; 99283

== ENCOUNTER 2022-01-26 08:00 | Outpatient (CLI) | payer MEDICAID | END 2022-01-26 23:59 | disposition home or self-care (01) | LOC: LAB.N 08:00 | PROVIDERS: ATTEND Physician Assistant Medical | DX: L02.91 Cutaneous abscess, unspecified (principal) | CPT/HCPCS: 87070; 87181; 87205 ==

== ENCOUNTER 2022-11-04 08:00 | Outpatient (CLI) | payer MEDICAID | END 2022-11-04 23:59 | disposition home or self-care (01) | LOC: LAB 08:00 | PROVIDERS: ATTEND Physician Assistant | DX: L03.90 Cellulitis, unspecified (principal) | CPT/HCPCS: 87070; 87077; 87205 ==

== ENCOUNTER 2022-12-22 17:40 | Outpatient (CLI) | payer MEDICAID | END 2022-12-22 23:59 | disposition critical access hospital (66) | LOC: EMS 17:40 | DX: F15.90 Other stimulant use, unspecified, uncomplicated (principal); R45.1 Restlessness and agitation; R00.0 Tachycardia, unspecified; R61 Generalized hyperhidrosis | CPT/HCPCS: A0425; A0427; A0999 ==

== ENCOUNTER 2022-12-22 17:57 | Emergency (ER) | payer MEDICAID ==
[2022-12-22 18:18] LABS: BASOPHILS % (AUTO) 0.4 %; EOSINOPHILS % (AUTO) 0.1 %; HCT - HEMATOCRIT 41.6 % (42.0-52.0); HGB - HEMOGLOBIN 14.7 g/dL (14.0-18.0); LYMPHOCYTES # (AUTO) 1.3 10^3/uL (1.5-3.5); MEAN CORPUSCULAR HEMOGLOBIN 30.5 pg (27.0-31.0); MEAN CORPUSCULAR HGB CONC 35.3 g/dL (32.0-36.0); MEAN CORPUSCULAR VOLUME 86.3 fL (80.0-94.0); MEAN PLATELET VOLUME 9.7 fL (7.4-11.4); MONOCYTES # (AUTO) 0.4 10^3/uL (0.0-1.0); MONOCYTES % (AUTO) 4.8 %; NEUTROPHILS # (AUTO) 5.5 10^3/uL (1.5-6.6); NEUTROPHILS % (AUTO) 76.4 %; PLT - PLATELET COUNT 244 10^3/uL (130-450); RED BLOOD COUNT 4.82 10^6/uL (4.70-6.10); RED CELL DISTRIBUTION WIDTH 12.1 % (12.0-15.0); WHITE BLOOD COUNT 7.2 x10^3/uL (4.8-10.8)
[2022-12-22 18:34] LABS: ACETAMINOPHEN < 10 ug/mL (10-30); ALBUMIN 4.2 g/dL (3.2-5.5); ALBUMIN/GLOBULIN RATIO 1.2 (1.0-2.2); ALKALINE PHOSPHATASE 46 IU/L (42-121); ALT ALANINE AMINOTRANSFERASE 22 IU/L (10-60); AST ASPARTATE AMINOTRANSFERASE 33 IU/L (10-42); BILIRUBIN,TOTAL 1.3 mg/dL (0.2-1.0); BUN - BLOOD UREA NITROGEN 9 mg/dL (6-20); CALCIUM 9.2 mg/dL (8.5-10.3); CARBON DIOXIDE - CO2 23 mmol/L (21-32); CHLORIDE 102 mmol/L (101-111); CK- CREATINE KINASE 522 IU/L (22-269); CREATININE 0.9 mg/dL (0.6-1.2); ETOH - ETHANOL < 5.0 mg/dL; GFR - MDRD 97 (>89); GLUCOSE 116 mg/dL (70-100); LIPASE 48 U/L (22-51); POTASSIUM 3.1 mmol/L (3.5-5.0); SALICYLATE < 6.0 mg/dL; SODIUM 134 mmol/L (135-145); TOTAL PROTEIN 7.6 g/dL (6.7-8.2)
[2022-12-22] MEDS ORDERED: DOXYCYCLINE 100 MG TABLET PO STA (19:04)
--- NOTE | 2022-12-22 19:06 | ED Physician Documentation ---
History of Present Illness - Stated complaint Stated Complaint: AMS - Chief complaint Chief Complaint: MHE - History obtained from History obtained from: Patient, Police - History of Present Illness Timing: Today Pain level max: 0 Pain level now: 0 - Additonal information Additional information: 32-year-old male was arrested earlier today. He started to become very agitated in intermediate, EMS was called. EMS gave him 5 mg of Versed which sedated the patient. Patient states that he used methamphetamine earlier today. Denies any other drug use. Denies any alcohol. He complains of left ear pain ongoing for the past several days, feels like he has an ear infection. No fevers. No chills. No vomiting. Review of Systems Constitutional: denies: Fever, Chills GI: denies: Vomiting, Diarrhea Skin: denies: Rash Musculoskeletal: denies: Neck pain, Back pain Neurologic: denies: Headache PD PAST MEDICAL HISTORY - Past Medical History Cardiovascular: None Respiratory: None Neuro: None Endocrine/Autoimmune: None GI: Other : None HEENT: None Psych: None Musculoskeletal: None Derm: None - Past Surgical History Past Surgical History: No General: Cholecystectomy - Present Medications Home Medications: Ambulatory Orders Medication Instructions Recorded Confirmed Doxycycline Monohydrate 100 mg PO BID #20 cap 12/22/22 - Allergies Allergies/Adverse Reactions: Allergies Allergy/AdvReac Type Severity Reaction Status Date / Time Penicillins Allergy Mild Itching Verified 12/22/22 18:02 codeine Allergy Unknown Verified 12/22/22 18:02 morphine Allergy Rash Verified 12/22/22 18:02 - Social History Does the pt smoke?: Yes Smoking Status: Current every day smoker Does the pt drink ETOH?: No Does the pt have substance abuse?: Yes - Immunizations Immunizations are current?: No Immunizations: TDAP >10years/unknown - POLST Patient has POLST: No PD ED PE NORMAL - Vitals Vital signs reviewed: Yes - General General: Alert and oriented X 3, No acute distress - HEENT HEENT: Atraumatic, PERRL, Ears normal (Right TM is normal. Left TM is erythematous, dull, bulging with loss of landmarks. 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, No motor deficit, No sensory deficit, Normal speech, Other (Drowsy, but arousable) Eye Opening: Spontaneous Motor: Obeys Commands Verbal: Oriented GCS Score: 15 - Psych Psych: Normal mood, Normal affect Results - Vitals Vitals: Vital Signs - 24 hr 12/22/22 12/22/22 12/22/22 18:02 18:59 19:57 Temperature 36.5 C Heart Rate 100 76 65 Respiratory 14 16 15 Rate Blood Pressure 142/86 H 128/75 126/72 O2 Saturation 97 98 99 Oxygen O2 Source Room air - Labs Labs: Laboratory Tests 12/22/22 12/22/22 12/22/22 18:12 18:12 18:12 WBC 7.2 RBC 4.82 Hgb 14.7 Hct 41.6 L MCV 86.3 MCH 30.5 MCHC 35.3 RDW 12.1 Plt Count 244 MPV 9.7 Neut # (Auto) 5.5 Lymph # (Auto) 1.3 L Heard # (Auto) 0.4 Eos # (Auto) 0.0 Baso # (Auto) 0.0 Absolute Nucleated RBC 0.00 Nucleated RBC % 0.0 Sodium 134 L Potassium 3.1 L Chloride 102 Carbon Dioxide 23 Anion Gap 9.0 BUN 9 Creatinine 0.9 Estimated GFR (MDRD) 97 Glucose 116 H Calcium 9.2 Magnesium 2.0 Total Bilirubin 1.3 H AST 33 ALT 22 Alkaline Phosphatase 46 Total Creatine Kinase 522 H Total Protein 7.6 Albumin 4.2 Globulin 3.4 Albumin/Globulin Ratio 1.2 Lipase 48 TSH 0.41 Salicylates < 6.0 Acetaminophen < 10 L Ethyl Alcohol < 5.0 PD Medical Decision Making - ED course Complexity details: reviewed results, re-evaluated patient, considered differential, d/w patient ED course: 32-year-old male status post methamphetamine use today. Was agitated in the intermediate. He received 5 mg of Versed with EMS. He fell asleep and rested in the emergency department. When he woke up his speech was clear. He was calm and cooperative. He did admit to methamphetamine use. He also was complaining of left ear pain and does appear to have an ear infection, placed on antibiotics for this. Patient was accompanied by police. Patient is alert, oriented and ambulatory under his own power. He will be discharged to intermediate. Patient counseled regarding signs and symptoms for which I believe and urgent re- evaluation would be necessary. Patient with good understanding of and agreement to plan This document was made in part using voice recognition software. While efforts are made to proofread this document, sound alike and grammatical errors may occur. Departure - Departure Disposition: 01 Home, Self Care Clinical Impression: Methamphetamine abuse LOM (left otitis media) Qualifiers: Otitis media type: suppurative Chronicity: acute Recurrence: non-recurrent Spontaneous tympanic membrane rupture: without spontaneous rupture Qualified Code(s): H66.002 - Acute suppurative otitis media without spontaneous rupture of ear drum, left ear Condition: Good Instructions: ED Drug Abuse General, ED Otitis Media Acute Adult Follow-Up: ELLA NÚÑEZ ARNP [Physician No Access] - Tomorrow Prescriptions: Doxycycline Monohydrate 100 mg PO BID #20 cap Comments: Please take all antibiotics until gone. You were given the first dose of doxycycline tonight. Please avoid methamphetamines in the future. Please follow-up with your doctor for further care. Discharge Date/Time: 12/22/22 19:58
[2022-12-22 19:59] VITALS: BP 126/72
== END 2022-12-22 19:58 | disposition home or self-care (01) ==
LOC: EDUNIT# → ED 17:57
DX: F15.10 Other stimulant abuse, uncomplicated (principal); H66.002 Acute suppurative otitis media without spontaneous rupture of ear drum, left ear; F17.200 Nicotine dependence, unspecified, uncomplicated
CPT/HCPCS: 36415; 80053; 80307; 80320; 80329; 82550; 83690; 83735; 84443; 85025; 99283; A9270